=== PATIENT | female | born 1945 | race Hispanic/Latino ===

== ENCOUNTER 2019-05-04 06:45 | Inpatient (IN) | payer MEDICARE | END 2019-05-06 16:00 | disposition home or self-care (01) | LOC: DAHIP 06:45 → 4AH 14:04 | PROC: 0RRK00Z Replacement of Left Shoulder Joint with Reverse Ball and Socket Synthetic Substitute, Open Approach (ICD-10-PCS; principal; 2019-05-04 09:47) | DX: M12.9 Arthropathy, unspecified (principal) ==

== ENCOUNTER → 2023-04-24 | Outpatient (CLI) | payer MEDICARE ==
[~2023-04-24] MED LIST: AMLO-74 PO; ATOR40TA71 PO; AZEL6DRO6 OU; HYDR-4457 PO; METF-444 PO; SULF1TAB3 PO; l-thyroxine PO
[2023-04-24 12:42] LABS: ALBUMIN 3.6 g/dL (3.5-5.0); BILIRUBIN,TOTAL 0.3 mg/dL (0.2-1.0); CREATININE 1.3 mg/dL (0.5-1.5); POTASSIUM 4.1 mmol/L (3.5-5.1); TOTAL PROTEIN, SERUM 7.9 g/dL (6.0-8.3)
== END | disposition home or self-care (01) ==
LOC: LAB 08:08
PROVIDERS: ATTEND Internal Medicine Cardiovascular Disease
DX: I10 Essential (primary) hypertension (principal); R61 Generalized hyperhidrosis; R06.09 Other forms of dyspnea; E11.59 Type 2 diabetes mellitus with other circulatory complications
CPT/HCPCS: 36415; 80053; 80061